=== PATIENT | female | born 1930 | race African-American/Black ===

== ENCOUNTER 2017-03-26 08:12 | Emergency (ER) | payer OTHER, MEDICAID ==
[~2017-03-26] VITALS: Ht 157.5 cm; Wt 78.0 kg
[~2017-03-26 08:12] MED LIST: ASPI-1159 PO; FURO40TA5 PO; LEVO100T9 PO; LIP40 PO; POTA10CA42 PO; SPIR25TA4 PO
[2017-03-26 10:09] LABS: BASOPHILS % 1.2 % (0.0-2.0); EOSINOPHILS % 2.2 % (0.0-5.0); HEMATOCRIT. 29.5 % (36.0-48.0); HEMOGLOBIN. 9.7 g/dL (12.0-16.0); LYMPHOCYTES % 40.9 % (20.0-50.0); MEAN CORPUSCULAR HEMOGLOBIN 28.1 pg (28.0-32.0); MEAN PLATELET VOLUME 7.8 fl (7.4-10.4); MONOCYTES % 8.4 % (2.0-8.0); NEUTROPHILS % 47.3 % (40.0-76.0); PLATELET 210 x1000/uL (130-400); RED BLOOD CELL COUNT 3.43 mill/uL (4.2-5.4); RED CELL DISTRIBUTION WIDTH 16.2 % (11.6-14.6)
[2017-03-26 10:25] LABS: CARBON DIOXIDE 26 mEq/L (21-32); CHLORIDE 102 mEq/L (98-107); TROPONIN I 0.05 ng/mL (0.00-0.04)
[2017-03-26 10:32] LABS: INR 1.1; PARTIAL THROMBOPLASTIN TIME 26.6 sec (23.4-31.0); PROTHROMBIN TIME 11.8 sec (9.4-11.6)
[2017-03-26 14:06] VITALS: BP 136/83
== END 2017-03-26 16:09 | disposition home or self-care (01) ==
LOC: ER 08:31
DX: R07.2 Precordial pain (principal); R10.9 Unspecified abdominal pain; R11.0 Nausea; R06.02 Shortness of breath; R60.0 Localized edema; I11.9 Hypertensive heart disease without heart failure; E11.9 Type 2 diabetes mellitus without complications; Z88.5 Allergy status to narcotic agent; Z79.82 Long term (current) use of aspirin
CPT/HCPCS: 36415; 51702; 71010; 80053; 83690; 84484; 85025; 85610; 85730; 93005; 99285; A4315

== ENCOUNTER 2017-04-30 09:20 | Inpatient (IN) | payer MEDICARE, MEDICAID ==
[~2017-04-30] VITALS: Ht 154.9 cm; Wt 80.3 kg
[2017-04-30] MEDS ORDERED: MORPHINE SULFATE 4 MG/ML CPJ (NOT FOR IM USE) IV STA (10:18)
[2017-04-30] MEDS ORDERED: ONDANSETRON HCL 4MG/2ML VIAL IV STA (10:18)
[2017-04-30] MEDS ORDERED: SODIUM CHLORIDE 0.9% 250 ML IV ONE (10:18)
[2017-04-30 10:51] LABS: BASOPHILS % 1.4 % (0.0-2.0); EOSINOPHILS % 1.3 % (0.0-5.0); HEMATOCRIT. 33.9 % (36.0-48.0); HEMOGLOBIN. 11.2 g/dL (12.0-16.0); LYMPHOCYTES % 28.3 % (20.0-50.0); MEAN CORPUSCULAR HEMOGLOBIN 28.7 pg (28.0-32.0); MEAN CORPUSCULAR VOLUME 87.3 fL (81.0-99.0); MEAN PLATELET VOLUME 7.6 fl (7.4-10.4); MONOCYTES % 6.6 % (2.0-8.0); NEUTROPHILS % 62.4 % (40.0-76.0); PLATELET 250 x1000/uL (130-400); RED BLOOD CELL COUNT 3.89 mill/uL (4.2-5.4); RED CELL DISTRIBUTION WIDTH 15.6 % (11.6-14.6)
[2017-04-30 11:06] LABS: INR 1.1; PROTHROMBIN TIME 11.2 sec (9.4-11.6)
[2017-04-30 11:12] LABS: CARBON DIOXIDE 29 mEq/L (21-32); CHLORIDE 102 mEq/L (98-107); TROPONIN I 0.05 ng/mL (0.00-0.04)
[2017-04-30] MEDS ORDERED: KETOROLAC 15MG/ML VIAL IV ONE (11:30)
[2017-04-30 12:07] LABS: CLARITY URINE CLEAR (CLEAR); COLOR URINE YELLOW (YELLOW); GLUCOSE URINE NEGATIVE (NEGATIVE); KETONES URINE NEGATIVE (NEGATIVE); LEUKOCYTE ESTERASE URINE 1+ (NEGATIVE); NITRITE URINE NEGATIVE (NEGATIVE); OCCULT BLOOD URINE NEGATIVE (NEGATIVE); PROTEIN URINE NEGATIVE (NEGATIVE); SPECIFIC GRAVITY URINE 1.008 (1.005-1.030); UROBILINOGEN URINE 0.2 E.U./dL (0.2-1.0)
[2017-04-30] MEDS ORDERED: IOHEXOL-300 100 ML BOTTLE ONE (12:41)
[2017-04-30 16:20] VITALS: BP 189/111
[2017-04-30 17:35] VITALS: BP 189/111
[2017-04-30] MEDS: LISINOPRIL 10MG TABLET PO SCH (18:21)
[2017-04-30] MEDS: CARVEDILOL 12.5MG TABLET PO SCH (18:21)
[2017-04-30] MEDS: FUROSEMIDE 40MG/4ML VIAL IVP SCH (18:21)
[2017-04-30 19:55] VITALS: BP 129/66
[2017-04-30] MEDS: ATORVASTATIN CALCIUM 40MG TABLET PO SCH (21:04)
[2017-04-30] MEDS: HEPARIN 5000 UNITS/ML VIAL SUBCUT SCH (21:04)
[2017-04-30] MEDS: ACETAMINOPHEN 325MG TABLET PO PRN (22:39)
[2017-04-30 23:40] VITALS: BP 128/70
[2017-05-01 04:00] VITALS: BP 128/74
[2017-05-01 07:58] LABS: HEMATOCRIT 31.4 % (36.0-48.0); HEMOGLOBIN 10.3 g/dL (12.0-16.0); MEAN CORPUSCULAR HEMOGLOBIN 28.6 pg (28.0-32.0); PLATELET 242 x1000/uL (130-400); RED BLOOD CELL COUNT 3.61 mill/uL (4.2-5.4); RED CELL DISTRIBUTION WIDTH 15.6 % (11.6-14.6)
[2017-05-01 08:08] VITALS: BP 142/86
[2017-05-01] MEDS: LEVOTHYROXINE SODIUM 100MCG TABLET PO SCH (08:25)
[2017-05-01] MEDS: ASPIRIN 81MG EC TABLET PO SCH (08:25)
[2017-05-01] MEDS: SPIRONOLACTONE 25MG TABLET PO SCH (08:26)
[2017-05-01] MEDS: POTASSIUM CHLORIDE 20MEQ TABLET SR PO SCH (08:26)
[2017-05-01] MEDS: LISINOPRIL 10MG TABLET PO SCH (08:26)
[2017-05-01] MEDS: CARVEDILOL 12.5MG TABLET PO SCH ×2 (08:28→17:00)
[2017-05-01 08:36] LABS: CARBON DIOXIDE 31 mEq/L (21-32); CHLORIDE 100 mEq/L (98-107); TROPONIN I 0.06 ng/mL (0.00-0.04)
[2017-05-01] MEDS: FUROSEMIDE 40MG/4ML VIAL IVP SCH (08:36)
[2017-05-01] MEDS: HEPARIN 5000 UNITS/ML VIAL SUBCUT SCH ×2 (08:39→20:32)
[2017-05-01] MEDS: ACETAMINOPHEN 325MG TABLET PO PRN ×2 (11:09→20:33)
[2017-05-01 12:00] VITALS: BP 129/69
[2017-05-01] MEDS ORDERED: LOPERAMIDE HCL 2MG CAPSULE PO SCH (13:45)
[2017-05-01 16:00] VITALS: BP 128/80
[2017-05-01] MEDS ORDERED: MORPHINE SULFATE 2 MG/ML CPJ (NOT FOR IM USE) IV PRN (16:15)
[2017-05-01] MEDS: MORPHINE SULFATE 4 MG/ML CPJ (NOT FOR IM USE) IV PRN ×2 (16:39→23:13)
[2017-05-01] MEDS: DEXT 5%/0.45% NACL KCL 20MEQ/L 1,000 ML IV SCH (17:45)
[2017-05-01 19:57] VITALS: BP 148/79
[2017-05-01] MEDS: ATORVASTATIN CALCIUM 40MG TABLET PO SCH (20:32)
[2017-05-01] MEDS: PANTOPRAZOLE 40MG DR TABLET PO SCH (20:32)
[2017-05-02] VITALS: BP 111/56
[2017-05-02] MEDS: DEXT 5%/0.45% NACL KCL 20MEQ/L 1,000 ML IV SCH (03:11)
[2017-05-02 04:00] VITALS: BP 132/80
[2017-05-02] MEDS: MORPHINE SULFATE 4 MG/ML CPJ (NOT FOR IM USE) IV PRN ×2 (05:04→21:12)
[2017-05-02 08:00] VITALS: BP 129/81
[2017-05-02] MEDS: FUROSEMIDE 40MG/4ML VIAL IVP SCH (08:44)
[2017-05-02] MEDS: PANTOPRAZOLE 40MG DR TABLET PO SCH ×2 (08:45→21:15)
[2017-05-02] MEDS: SPIRONOLACTONE 25MG TABLET PO SCH (08:45)
[2017-05-02] MEDS: ASPIRIN 81MG EC TABLET PO SCH (08:45)
[2017-05-02] MEDS: LISINOPRIL 10MG TABLET PO SCH (08:45)
[2017-05-02] MEDS: CARVEDILOL 12.5MG TABLET PO SCH (08:45)
[2017-05-02] MEDS: LEVOTHYROXINE SODIUM 100MCG TABLET PO SCH (08:45)
[2017-05-02] MEDS: POTASSIUM CHLORIDE 20MEQ TABLET SR PO SCH (08:45)
[2017-05-02] MEDS: HEPARIN 5000 UNITS/ML VIAL SUBCUT SCH ×2 (08:47→21:15)
[2017-05-02 11:41] LABS: EOSINOPHILS % 2.8 % (0.0-5.0); HEMATOCRIT. 32.3 % (36.0-48.0); HEMOGLOBIN. 10.6 g/dL (12.0-16.0); LYMPHOCYTES % 33.2 % (20.0-50.0); MEAN CORPUSCULAR HEMOGLOBIN 28.6 pg (28.0-32.0); MEAN CORPUSCULAR VOLUME 87.1 fL (81.0-99.0); MEAN PLATELET VOLUME 7.8 fl (7.4-10.4); MONOCYTES % 9.1 % (2.0-8.0); NEUTROPHILS % 53.9 % (40.0-76.0); PLATELET 245 x1000/uL (130-400); RED BLOOD CELL COUNT 3.71 mill/uL (4.2-5.4); RED CELL DISTRIBUTION WIDTH 15.5 % (11.6-14.6)
[2017-05-02 12:00] VITALS: BP 123/72
[2017-05-02 12:09] LABS: CARBON DIOXIDE 29 mEq/L (21-32); CHLORIDE 103 mEq/L (98-107)
[2017-05-02 16:00] VITALS: BP 145/70
[2017-05-02] MEDS ORDERED: ASPIRIN 81MG EC TABLET PO SCH (16:00)
[2017-05-02 20:00] VITALS: BP 151/81
[2017-05-02] MEDS: ATORVASTATIN CALCIUM 40MG TABLET PO SCH (21:16)
[2017-05-03] VITALS (9 sets, daily range): BP systolic 128–179; BP diastolic 64–88
[2017-05-03] MEDS: MORPHINE SULFATE 4 MG/ML CPJ (NOT FOR IM USE) IV PRN ×2 (01:57→22:33)
[2017-05-03] MEDS: SPIRONOLACTONE 25MG TABLET PO SCH (08:43)
[2017-05-03] MEDS: LISINOPRIL 10MG TABLET PO SCH (08:43)
[2017-05-03] MEDS: ASPIRIN 81MG EC TABLET PO SCH (08:43)
[2017-05-03] MEDS: FUROSEMIDE 40MG/4ML VIAL IVP SCH (08:43)
[2017-05-03] MEDS: PANTOPRAZOLE 40MG DR TABLET PO SCH ×2 (08:43→21:29)
[2017-05-03] MEDS: POTASSIUM CHLORIDE 20MEQ TABLET SR PO SCH (08:43)
[2017-05-03] MEDS: LEVOTHYROXINE SODIUM 100MCG TABLET PO SCH (08:43)
[2017-05-03] MEDS: HEPARIN 5000 UNITS/ML VIAL SUBCUT SCH ×2 (08:44→23:41)
[2017-05-03] MEDS: AMLODIPINE 5MG TABLET PO SCH (14:04)
[2017-05-03] MEDS: ONDANSETRON HCL 4MG/2ML VIAL IV PRN ×2 (14:35→21:29)
[2017-05-03] MEDS ORDERED: BISACODYL 10MG SUPP PR PRN (15:45)
[2017-05-03] MEDS: ATORVASTATIN CALCIUM 40MG TABLET PO SCH (21:29)
[2017-05-03] MEDS: ACETAMINOPHEN 325MG TABLET PO PRN (22:41)
[2017-05-03] MEDS ORDERED: TRAMADOL 50MG TABLET PO PRN (23:15)
[2017-05-03] MEDS ORDERED: CLONIDINE 0.1MG TABLET PO PRN (23:15)
[2017-05-04] VITALS: BP 133/71
[2017-05-04 04:00] VITALS: BP 128/76
[2017-05-04] MEDS: ONDANSETRON HCL 4MG/2ML VIAL IV PRN (05:14)
[2017-05-04 08:00] VITALS: BP 137/85
[2017-05-04] MEDS: POTASSIUM CHLORIDE 20MEQ TABLET SR PO SCH (08:12)
[2017-05-04] MEDS: LISINOPRIL 10MG TABLET PO SCH (08:12)
[2017-05-04] MEDS: ASPIRIN 81MG EC TABLET PO SCH (08:12)
[2017-05-04] MEDS: AMLODIPINE 5MG TABLET PO SCH (08:12)
[2017-05-04] MEDS: PANTOPRAZOLE 40MG DR TABLET PO SCH (08:12)
[2017-05-04] MEDS: LEVOTHYROXINE SODIUM 100MCG TABLET PO SCH (08:12)
[2017-05-04] MEDS: SPIRONOLACTONE 25MG TABLET PO SCH (08:13)
[2017-05-04] MEDS: HEPARIN 5000 UNITS/ML VIAL SUBCUT SCH (08:13)
[2017-05-04] MEDS: FUROSEMIDE 40MG/4ML VIAL IVP SCH (08:13)
== END 2017-05-04 12:05 | disposition hospice, home (50) | DRG 292 ==
LOC: ER 09:27 → OBSVTOIN 14:31 → 7WST 14:31 → INTOOBSV 14:31 → EDBEDREQ 14:38 → ENRESERV 15:02
PROVIDERS: ADMIT Ophthalmology; ATTEND Internal Medicine
DX: I11.0 Hypertensive heart disease with heart failure (principal); I48.92 Unspecified atrial flutter; I48.2 Chronic atrial fibrillation; E11.9 Type 2 diabetes mellitus without complications; K52.89 Other specified noninfective gastroenteritis and colitis; I50.33 Acute on chronic diastolic (congestive) heart failure; E03.9 Hypothyroidism, unspecified; R78.89 Finding of other specified substances, not normally found in blood; I25.10 Atherosclerotic heart disease of native coronary artery without angina pectoris; E78.5 Hyperlipidemia, unspecified; I25.2 Old myocardial infarction; I70.0 Atherosclerosis of aorta; M19.90 Unspecified osteoarthritis, unspecified site; Z74.01 Bed confinement status; Z87.891 Personal history of nicotine dependence; Z88.6 Allergy status to analgesic agent; Z79.899 Other long term (current) drug therapy; Z79.82 Long term (current) use of aspirin
CPT/HCPCS: 36415; 71010; 74177; 80048; 80053; 81001; 82962; 83605; 83690; 83880; 84443; 84484; 85025; 85027; 85610; 93005; 96361; 96374; 96375; 99285; J1644; J1885; J1940; J2270; J2405; J7030; J7050; Q9967

== ENCOUNTER 2017-10-08 18:29 | Emergency (ER) | payer MEDICAID, OTHER ==
[~2017-10-08] VITALS: Ht 167.6 cm; Wt 64.0 kg
[2017-10-08] MEDS ORDERED: ONDANSETRON HCL 4MG/2ML VIAL IV STA (19:15)
[2017-10-08 19:47] LABS: BASOPHILS % 0.9 % (0.0-2.0); HEMATOCRIT. 33.3 % (36.0-48.0); HEMOGLOBIN. 11.2 g/dL (12.0-16.0); LYMPHOCYTES % 36.5 % (20.0-50.0); MEAN CORPUSCULAR HEMOGLOBIN 28.2 pg (28.0-32.0); MEAN CORPUSCULAR VOLUME 83.7 fL (81.0-99.0); MEAN PLATELET VOLUME 7.4 fl (7.4-10.4); MONOCYTES % 8.1 % (2.0-8.0); NEUTROPHILS % 52.5 % (40.0-76.0); PLATELET 247 x1000/uL (130-400); RED BLOOD CELL COUNT 3.98 mill/uL (4.2-5.4); RED CELL DISTRIBUTION WIDTH 17.8 % (11.6-14.6)
[2017-10-08 19:52] LABS: CHLORIDE 98 mEq/L (98-107); INR 1.2; PROTHROMBIN TIME 12.5 sec (9.4-11.6)
[2017-10-08] MEDS ORDERED: MORPHINE SULFATE 2 MG/ML CPJ (NOT FOR IM USE) IV ONE (20:30)
[2017-10-08] MEDS ORDERED: MORPHINE SULFATE 4 MG/ML CPJ (NOT FOR IM USE) IV SCH (20:39)
[2017-10-08 23:57] VITALS: BP 101/56
== END 2017-10-09 01:50 | disposition home or self-care (01) ==
LOC: ER 19:24
DX: R10.11 Right upper quadrant pain (principal); E03.9 Hypothyroidism, unspecified; I11.0 Hypertensive heart disease with heart failure; I48.91 Unspecified atrial fibrillation; I50.9 Heart failure, unspecified; K21.9 Gastro-esophageal reflux disease without esophagitis; Z79.82 Long term (current) use of aspirin; Z88.5 Allergy status to narcotic agent; Z98.890 Other specified postprocedural states
CPT/HCPCS: 36415; 80053; 83690; 85025; 85610; 93005; 96374; 96375; 99285; J2270; J2405